=== PATIENT | male | born 1970 | race Caucasian/White ===

== ENCOUNTER 2025-04-11 17:00 | Inpatient (IN) | payer MEDICAID, MEDICARE ==
[~2025-04-11] VITALS: Ht 167.6 cm; Wt 50.0 kg
[~2025-04-11 17:00] MED LIST: ASCO500C19 MT; CLON1TAB23 MT; CYAN-50 GT; FLUO20CA33 MT; HYDR-4009 MT; INSLIS SUBCUT; IPRA3AMP9 HHN; IVER3TAB2 PO; MELA3TAB71 MT; MULT-1146 MT; NALO4SPR BOTHNSTRLS; ONDA4TAB50 MT; PANT40VI IV; SCOP1PAT2 TD; SUCR1TAB GT; THIA100T72 GT; TOPUD PO; ZINC1CAP2 GT
[2025-04-11 17:06] VITALS: O2SAT 97
[2025-04-11 17:20] VITALS: PULSE 119; RESP 20; O2SAT 99
[2025-04-11] MEDS: SODIUM CHLORIDE 0.9% (SEPSIS BOLUS) IV ONE (17:56)
[2025-04-11] MEDS: CEFTRIAXONE 1GM/50ML 50 ML IV ONE (17:56)
[2025-04-11 18:13] LABS: HEMATOCRIT. 21.4 % (42.0-52.0); HEMOGLOBIN. 7.1 g/dL (14.0-18.0); MEAN CORPUSCULAR HEMOGLOBIN 27.2 pg (28.0-32.0); MEAN CORPUSCULAR HGB CONC 33.2 g/dL (31.0-37.0); MEAN PLATELET VOLUME 6.9 fl (7.4-10.4); PLATELET 231 x1000/uL (130-400); RED BLOOD CELL COUNT 2.61 mill/uL (4.7-6.1); RED CELL DISTRIBUTION WIDTH 17.2 % (11.6-14.6)
[2025-04-11 18:15] LABS: DIFFERENTIAL COMMENT 1
[2025-04-11 18:22] LABS: CHLORIDE 106 mEq/L (98-107); POTASSIUM 3.8 mEq/L (3.5-5.1); SODIUM 138 mEq/L (136-145)
[2025-04-11 18:23] LABS: CARBON DIOXIDE 24 mEq/L (21-32)
[2025-04-11 18:24] LABS: CALCIUM 8.3 mg/dL (8.7-10.4)
[2025-04-11 18:28] LABS: CREATININE 0.2 mg/dL (0.6-1.3); GLUCOSE 110 mg/dL (70-105); UREA NITROGEN BLOOD 13 mg/dL (9-23)
[2025-04-11 18:29] LABS: TROPONIN I HIGH SENSITIVITY 10 ng/L (3.0-53)
[2025-04-11 18:30] LABS: ALANINE AMINOTRANSFERASE 19 IU/L (10-49); ALBUMIN 3.2 g/dL (3.2-4.8); ASPARTATE AMINOTRANSFERASE 14 IU/L (<34); BILIRUBIN DIRECT 0.1 mg/dL (<=3.0)
[2025-04-11 18:31] LABS: BILIRUBIN TOTAL 0.3 mg/dL (0.1-1.0); PROTEIN TOTAL 6.7 g/dL (6.0-8.3)
[2025-04-11 19:58] VITALS: PULSE 88; RESP 20; O2SAT 99
[2025-04-11 21:35] LABS: ANISOCYTOSIS 1+; PLATELET ESTIMATE NORMAL
[2025-04-11 22:24] LABS: PROTHROMBIN TIME 10.5 sec (9.6-11.0)
[2025-04-11 22:56] VITALS: PULSE 85; RESP 20; O2SAT 99
[2025-04-12] VITALS (24 sets, daily range): BP systolic 122–155; BP diastolic 73–88; PULSE 61–118; RESP 18–20; TEMP 36.28068–37.4; O2SAT 94–100
[2025-04-12] MEDS ORDERED: DEXTROSE 50% WATER 50ML SYRINGE IV PRN (01:00)
[2025-04-12] MEDS ORDERED: NALOXONE HCL 0.4MG/ML VIAL IV PRN (02:30)
[2025-04-12] MEDS ORDERED: ONDANSETRON HCL 4MG TABLET GT SCH (06:00)
[2025-04-12] MEDS ORDERED: ONDANSETRON HCL 4MG TABLET GT PRN (06:00)
[2025-04-12] MEDS: DEXTROSE 50% WATER 50ML SYRINGE IV PRN (07:00)
[2025-04-12] MEDS: BLOOD SUGAR DIAGNOSTIC STRIP TEST SCH (07:11)
[2025-04-12] MEDS ORDERED: BLOOD SUGAR DIAGNOSTIC STRIP TEST SCH (07:30)
[2025-04-12] MEDS: INSULIN LISPRO 100 UNITS/ML SUBCUT SCH (08:00)
[2025-04-12] MEDS ORDERED: INSULIN LISPRO 100 UNITS/ML SUBCUT SCH (08:00)
[2025-04-12] MEDS ORDERED: CLONIDINE 0.1MG TABLET GT PRN (09:00)
[2025-04-12] MEDS ORDERED: CEFEPIME 1GM/50ML 50 ML IV SCH (09:30)
[2025-04-12] MEDS ORDERED: CEFEPIME 2GM/50ML DUPLEX 50 ML IV SCH (10:30)
[2025-04-12 12:50] LABS: BG CARBOXYHEMOGLOBIN 0.9 % (0.5-1.5); BG DEOXYHEMOGLOBIN 2.9 % (0.0-5.0); BG FRACTION INSPIRED OXYGEN 40; BG HCO3 ACT 18.1 mmol/L (21.0-28.0); BG METHEMOGLOBIN 0.1 % (0.5-1.5); BG OXYGEN SATURATION 97.1 % (94.0-98.0); BG OXYHEMOGLOBIN 96.1 % (94.0-98.0); BG PH 7.385 (7.350-7.450); BG PO2 90.9 mmHg (83.0-108.0); BG SAMPLE SITE RIGHT RADIAL; BG TOTAL HEMOGLOBIN 10.1 g/dL (13.5-17.5); BG VENT MODE VENT - AC
[2025-04-12] MEDS: HYDROCODONE/ACETAMINOPHEN 10/325MG TABLET GT PRN (15:25)
[2025-04-12 19:32] LABS: CLARITY URINE CLEAR (CLEAR); COLOR URINE YELLOW (YELLOW); GLUCOSE URINE NEGATIVE (NEGATIVE); KETONES URINE 2+ (NEGATIVE); LEUKOCYTE ESTERASE URINE TRACE (NEGATIVE); NITRITE URINE NEGATIVE (NEGATIVE); OCCULT BLOOD URINE TRACE (NEGATIVE); PH URINE 5.5 (4.5-8.0); PROTEIN URINE 1+ (NEGATIVE); SPECIFIC GRAVITY URINE 1.011 (1.005-1.030); UROBILINOGEN URINE 0.2 E.U./dL (0.2-1.0)
[2025-04-12 19:58] LABS: BACTERIA URINE NONE SEEN; RBC URINE 0-2 /hpf (0-2); SQUAMOUS EPITHELIAL CELL URINE FEW /lpf (RARE/1+); WBC URINE 0-2 /hpf (0-2); YEAST URINE 1+
[2025-04-12] MEDS: IPRATROPIUM/ALBUTEROL 0.5-3(2.5)MG/3ML NEB HHN SCH (20:58)
[2025-04-12] MEDS: VANCOMYCIN 1G PREMIX 200 ML IV NR (22:38)
[2025-04-12] MEDS: PIPERACILLIN/TAZO 3.375G/50ML 50 ML IV SCH (22:39)
[2025-04-12] MEDS: LORAZEPAM 2MG/ML UD SYRINGE IV PRN (23:14)
[2025-04-13] VITALS (19 sets, daily range): BP systolic 97–138; BP diastolic 61–88; PULSE 77–101; RESP 18–28; TEMP 36.4–38; O2SAT 93–100
[2025-04-13] MEDS: ACETYLCYSTEINE 200MG/ML 20% VIAL 4ML INH SCH (01:35)
[2025-04-13] MEDS: VANCOMYCIN 750MG PREMIX 150 ML IV SCH (06:03)
[2025-04-13 06:50] LABS: CHLORIDE 106 mEq/L (98-107); SODIUM 141 mEq/L (136-145)
[2025-04-13 06:51] LABS: CALCIUM 8.4 mg/dL (8.7-10.4); CARBON DIOXIDE 25 mEq/L (21-32)
[2025-04-13 06:56] LABS: GLUCOSE 87 mg/dL (70-105); UREA NITROGEN BLOOD < 5 mg/dL (9-23)
[2025-04-13 07:05] LABS: CREATININE < 0.2 mg/dL (0.6-1.3)
[2025-04-13 07:07] LABS: POTASSIUM 2.4 mEq/L (3.5-5.1)
[2025-04-13 07:57] LABS: BASOPHILS % 0.1 % (0.0-2.0); EOSINOPHILS % 0.4 % (0.0-5.0); HEMATOCRIT. 29.6 % (42.0-52.0); HEMOGLOBIN. 9.8 g/dL (14.0-18.0); LYMPHOCYTES % 7.6 % (20.0-50.0); MEAN CORPUSCULAR HEMOGLOBIN 27.5 pg (28.0-32.0); MEAN CORPUSCULAR VOLUME 83.2 fL (80.0-94.0); MONOCYTES % 6.8 % (2.0-8.0); NEUTROPHILS % 85.1 % (40.0-76.0); PLATELET 258 x1000/uL (130-400); RED BLOOD CELL COUNT 3.56 mill/uL (4.7-6.1); RED CELL DISTRIBUTION WIDTH 16.4 % (11.6-14.6); WHITE BLOOD COUNT 12.8 x1000/uL (4.5-11.0)
[2025-04-13] MEDS: FERROUS SULFATE 325MG TABLET PO SCH (08:50)
[2025-04-13] MEDS: PANTOPRAZOLE SODIUM 40 MG/VIAL IV SCH (08:50)
[2025-04-13] MEDS: KCL 20MEQ/100ML PREMIX 100 ML IV SCH (08:50)
[2025-04-13] MEDS: POTASSIUM CHLORIDE 20MEQ/PACKET PO SCH (08:50)
[2025-04-13] MEDS: FLUCONAZOLE 200 MG/100ML BAG 100 ML IV SCH (11:26)
[2025-04-13 19:14] LABS: POTASSIUM 4.3 mEq/L (3.5-5.1)
[2025-04-14] VITALS (22 sets, daily range): BP systolic 82–155; BP diastolic 56–89; PULSE 73–132; RESP 20–22; TEMP 36.7–38.1; O2SAT 92–100
[2025-04-14] MEDS: VANCOMYCIN 1GM PMX (XELLIA) 200 ML IV SCH (00:14)
[2025-04-14 06:21] LABS: BASOPHILS % 0.4 % (0.0-2.0); EOSINOPHILS % 2.5 % (0.0-5.0); HEMATOCRIT. 25.2 % (42.0-52.0); HEMOGLOBIN. 8.4 g/dL (14.0-18.0); LYMPHOCYTES % 14.5 % (20.0-50.0); MEAN CORPUSCULAR HGB CONC 33.4 g/dL (31.0-37.0); MEAN CORPUSCULAR VOLUME 83.7 fL (80.0-94.0); MEAN PLATELET VOLUME 6.9 fl (7.4-10.4); MONOCYTES % 9.2 % (2.0-8.0); NEUTROPHILS % 73.4 % (40.0-76.0); PLATELET 247 x1000/uL (130-400); RED BLOOD CELL COUNT 3.01 mill/uL (4.7-6.1); RED CELL DISTRIBUTION WIDTH 16.7 % (11.6-14.6); WHITE BLOOD COUNT 6.6 x1000/uL (4.5-11.0)
[2025-04-14 06:31] LABS: CALCIUM 8.2 mg/dL (8.7-10.4); CHLORIDE 105 mEq/L (98-107); POTASSIUM 4.1 mEq/L (3.5-5.1); SODIUM 139 mEq/L (136-145)
[2025-04-14 06:32] LABS: CARBON DIOXIDE 27 mEq/L (21-32)
[2025-04-14 06:37] LABS: GLUCOSE 112 mg/dL (70-105); UREA NITROGEN BLOOD 7 mg/dL (9-23)
[2025-04-14 06:47] LABS: FOLIC ACID (FOLATE) SERUM 5.71 ng/mL (>5.38); IRON 19 ug/dL (65-175)
[2025-04-14 06:48] LABS: FERRITIN 551 ng/mL (22-322); VITAMIN B12 SERUM 1435 pg/mL (211-911)
[2025-04-14 06:49] LABS: PHOSPHORUS 2.2 mg/dL (2.5-4.9)
[2025-04-14 06:51] LABS: TOTAL IRON BINDING CAPACITY 149 ug/dl (250-425)
[2025-04-14 07:16] LABS: CREATININE < 0.2 mg/dL (0.6-1.3)
[2025-04-14] MEDS ORDERED: NON FORMULARY MED XX SCH (10:15)
[2025-04-14] MEDS: POLYETHYLENE GLYCOL 3350 (17GM) 1 DOSE PACK GT NR (11:23)
[2025-04-14] MEDS: FOLIC ACID 1MG TABLET PO SCH (11:24)
[2025-04-14] MEDS: IRON SUCROSE COMPLEX 100 MG/5 ML ML IV SCH (11:30)
[2025-04-14] MEDS: MAGNESIUM 1 G PREMIX 100 ML IV SCH (13:38)
[2025-04-14] MEDS: GUAIFENESIN 200MG/10ML SUGAR FREE UDC PO SCH (17:36)
[2025-04-14] MEDS: ACETAMINOPHEN 325MG TABLET PO PRN (18:19)
[2025-04-15] VITALS (21 sets, daily range): BP systolic 86–148; BP diastolic 56–88; PULSE 66–111; RESP 19–22; TEMP 36.3–37.4; O2SAT 97–100
[2025-04-15 06:27] LABS: CHLORIDE 104 mEq/L (98-107); POTASSIUM 3.8 mEq/L (3.5-5.1); SODIUM 139 mEq/L (136-145)
[2025-04-15 06:28] LABS: CARBON DIOXIDE 30 mEq/L (21-32)
[2025-04-15 06:29] LABS: CALCIUM 8.3 mg/dL (8.7-10.4)
[2025-04-15 06:33] LABS: CREATININE 0.2 mg/dL (0.6-1.3); GLUCOSE 127 mg/dL (70-105)
[2025-04-15 06:34] LABS: UREA NITROGEN BLOOD 9 mg/dL (9-23)
[2025-04-15 07:24] LABS: BASOPHILS % 0.3 % (0.0-2.0); EOSINOPHILS % 1.7 % (0.0-5.0); HEMATOCRIT. 25.9 % (42.0-52.0); HEMOGLOBIN. 8.6 g/dL (14.0-18.0); LYMPHOCYTES % 16.4 % (20.0-50.0); MEAN CORPUSCULAR HEMOGLOBIN 27.8 pg (28.0-32.0); MEAN CORPUSCULAR HGB CONC 33.2 g/dL (31.0-37.0); MEAN CORPUSCULAR VOLUME 83.8 fL (80.0-94.0); MEAN PLATELET VOLUME 6.9 fl (7.4-10.4); MONOCYTES % 9.6 % (2.0-8.0); PLATELET 255 x1000/uL (130-400); RED BLOOD CELL COUNT 3.09 mill/uL (4.7-6.1); RED CELL DISTRIBUTION WIDTH 16.9 % (11.6-14.6); WHITE BLOOD COUNT 7.3 x1000/uL (4.5-11.0)
[2025-04-15] MEDS ORDERED: VANCOMYCIN 1.25GM/250ML 250 ML IV SCH (09:00)
[2025-04-16] VITALS (25 sets, daily range): BP systolic 83–169; BP diastolic 53–92; PULSE 69–128; RESP 20–28; TEMP 36.3–37.6; O2SAT 93–100
[2025-04-16] MEDS: CLONIDINE 0.1MG TABLET GT PRN (16:45)
[2025-04-16] MEDS: METOPROLOL TARTRATE 50MG TABLET PO SCH (17:57)
[2025-04-16 20:15] LABS: HEMATOCRIT. 30.1 % (42.0-52.0); HEMOGLOBIN. 9.6 g/dL (14.0-18.0); MEAN CORPUSCULAR HEMOGLOBIN 27.3 pg (28.0-32.0); MEAN CORPUSCULAR HGB CONC 31.9 g/dL (31.0-37.0); MEAN CORPUSCULAR VOLUME 85.7 fL (80.0-94.0); MEAN PLATELET VOLUME 6.5 fl (7.4-10.4); PLATELET 332 x1000/uL (130-400); RED BLOOD CELL COUNT 3.51 mill/uL (4.7-6.1); WHITE BLOOD COUNT 24.9 x1000/uL (4.5-11.0)
[2025-04-16 20:16] LABS: DIFFERENTIAL COMMENT 1
[2025-04-16 20:27] LABS: CHLORIDE 101 mEq/L (98-107); POTASSIUM 3.7 mEq/L (3.5-5.1); SODIUM 138 mEq/L (136-145)
[2025-04-16 20:28] LABS: CALCIUM 8.6 mg/dL (8.7-10.4); CARBON DIOXIDE 31 mEq/L (21-32)
[2025-04-16 20:33] LABS: CREATININE 0.2 mg/dL (0.6-1.3); GLUCOSE 91 mg/dL (70-105); UREA NITROGEN BLOOD 8 mg/dL (9-23)
[2025-04-16 20:44] LABS: MICROCYTOSIS 1+; PLATELET ESTIMATE NORMAL
[2025-04-17] VITALS (24 sets, daily range): BP systolic 78–138; BP diastolic 50–84; PULSE 68–109; RESP 20–24; TEMP 36.4–38; O2SAT 94–100
[2025-04-17] MEDS: SODIUM CHLORIDE 0.9% 1,000 ML IV NR (07:35)
[2025-04-17] MEDS: MIDODRINE HCL 5MG TABLET PO SCH (13:00)
[2025-04-17 22:12] LABS: BASOPHILS % 0.1 % (0.0-2.0); EOSINOPHILS % 0.1 % (0.0-5.0); HEMATOCRIT. 29.3 % (42.0-52.0); HEMOGLOBIN. 9.4 g/dL (14.0-18.0); LYMPHOCYTES % 7.3 % (20.0-50.0); MEAN CORPUSCULAR HEMOGLOBIN 27.3 pg (28.0-32.0); MEAN CORPUSCULAR HGB CONC 32.2 g/dL (31.0-37.0); MONOCYTES % 8.2 % (2.0-8.0); NEUTROPHILS % 84.3 % (40.0-76.0); PLATELET 347 x1000/uL (130-400); RED BLOOD CELL COUNT 3.45 mill/uL (4.7-6.1); RED CELL DISTRIBUTION WIDTH 17.1 % (11.6-14.6); WHITE BLOOD COUNT 19.6 x1000/uL (4.5-11.0)
[2025-04-17] MEDS: HYDROCODONE/ACETAMINOPHEN 10/325MG TABLET PO PRN (22:29)
[2025-04-18] VITALS (17 sets, daily range): BP systolic 100–149; BP diastolic 62–91; PULSE 68–109; RESP 20; TEMP 36.6–37.2; O2SAT 96–99
[2025-04-18 01:24] LABS: BG BASE EXCESS 6.2 mmol/L (-2.0-3.0); BG DEOXYHEMOGLOBIN 2.2 % (0.0-5.0); BG FRACTION INSPIRED OXYGEN 40; BG HCO3 ACT 31.3 mmol/L (21.0-28.0); BG METHEMOGLOBIN 0.1 % (0.5-1.5); BG OXYGEN SATURATION 97.8 % (94.0-98.0); BG OXYHEMOGLOBIN 96.7 % (94.0-98.0); BG PCO2 47.3 mmHg (35.0-48.0); BG PH 7.439 (7.350-7.450); BG PO2 93.9 mmHg (83.0-108.0); BG SAMPLE SITE RIGHT RADIAL; BG TOTAL HEMOGLOBIN 13.4 g/dL (13.5-17.5); BG VENT MODE VENT - AC
[2025-04-18] MEDS: ALBUTEROL (0.083%) 2.5MG/3ML NEB HHN SCH (02:26)
[2025-04-18 06:39] LABS: HEMATOCRIT 23.7 % (42.0-52.0); HEMOGLOBIN 7.7 g/dL (14.0-18.0); MEAN CORPUSCULAR HEMOGLOBIN 27.5 pg (28.0-32.0); MEAN CORPUSCULAR HGB CONC 32.7 g/dL (31.0-37.0); MEAN CORPUSCULAR VOLUME 84.2 fL (80.0-94.0); PLATELET 311 x1000/uL (130-400); RED BLOOD CELL COUNT 2.81 mill/uL (4.7-6.1); RED CELL DISTRIBUTION WIDTH 16.7 % (11.6-14.6); WHITE BLOOD COUNT 11.8 x1000/uL (4.5-11.0)
[2025-04-18 06:43] LABS: CARBON DIOXIDE 32 mEq/L (21-32); CHLORIDE 101 mEq/L (98-107); POTASSIUM 3.5 mEq/L (3.5-5.1); SODIUM 139 mEq/L (136-145)
[2025-04-18 06:44] LABS: CALCIUM 8.3 mg/dL (8.7-10.4)
[2025-04-18 06:49] LABS: GLUCOSE 108 mg/dL (70-105); UREA NITROGEN BLOOD 12 mg/dL (9-23)
[2025-04-18 06:51] LABS: PHOSPHORUS 2.3 mg/dL (2.5-4.9)
[2025-04-18 06:54] LABS: CREATININE < 0.2 mg/dL (0.6-1.3)
[2025-04-18 07:56] LABS: BG BASE EXCESS 5.9 mmol/L (-2.0-3.0); BG CARBOXYHEMOGLOBIN 0.9 % (0.5-1.5); BG DEOXYHEMOGLOBIN 1.6 % (0.0-5.0); BG FRACTION INSPIRED OXYGEN 40; BG HCO3 ACT 29.9 mmol/L (21.0-28.0); BG METHEMOGLOBIN 0.1 % (0.5-1.5); BG OXYGEN SATURATION 98.4 % (94.0-98.0); BG OXYHEMOGLOBIN 97.4 % (94.0-98.0); BG PCO2 41.2 mmHg (35.0-48.0); BG PH 7.479 (7.350-7.450); BG PO2 105.7 mmHg (83.0-108.0); BG SAMPLE SITE ALINE; BG TOTAL HEMOGLOBIN 8.5 g/dL (13.5-17.5); BG VENT MODE VENT - AC
== END 2025-04-18 17:00 | DRG 720 ==
LOC: ER 17:00 → 5EST 20:00 → EDBEDREQ 20:12 → EDBEDREQTM 20:12 → ENRESERV 20:57
PROVIDERS: ADMIT Internal Medicine; ATTEND Internal Medicine
PROC: 5A1955Z Respiratory Ventilation, Greater than 96 Consecutive Hours (ICD-10-PCS; principal; 2025-04-11)
PROC: 30233N1 Transfusion of Nonautologous Red Blood Cells into Peripheral Vein, Percutaneous Approach (ICD-10-PCS; 2025-04-11)
DX: A41.9 Sepsis, unspecified organism (principal); J96.20 Acute and chronic respiratory failure, unspecified whether with hypoxia or hypercapnia; G82.50 Quadriplegia, unspecified; J44.0 Chronic obstructive pulmonary disease with (acute) lower respiratory infection; E46 Unspecified protein-calorie malnutrition; J15.1 Pneumonia due to Pseudomonas; L89.150 Pressure ulcer of sacral region, unstageable; Z99.11 Dependence on respirator [ventilator] status; Z93.0 Tracheostomy status; D63.8 Anemia in other chronic diseases classified elsewhere; B37.49 Other urogenital candidiasis; D75.839 Thrombocytosis, unspecified; E11.65 Type 2 diabetes mellitus with hyperglycemia; F41.9 Anxiety disorder, unspecified; I10 Essential (primary) hypertension; F32.A Depression, unspecified; E87.6 Hypokalemia; Z74.01 Bed confinement status; E61.1 Iron deficiency; K21.9 Gastro-esophageal reflux disease without esophagitis; Z93.1 Gastrostomy status; Z68.1 Body mass index [BMI] 19.9 or less, adult
CPT/HCPCS: 31720; 36415; 36430; 36600; 71045; 80048; 80076; 80202; 81003; 82270; 82375; 82607; 82728; 82746; 82805; 82962; 83036; 83540; 83550; 83605; 83735; 84100; 84132; 84145; 84484; 85025; 85027; 85044; 86850; 86900; 86920; 87070; 87077; 87106; 87186; 93005; 93970; 94002; 94003; 94070; 94640; 94664; 99291; A4606; J0692; J0696; J1450; J1815; J2060; J2470; J2543; J3370; J3475; J3480; J7030; J7608; P9016